=== PATIENT | male | born 1960 | race Caucasian/White ===

== ENCOUNTER 2023-11-18 17:47 | Emergency (ER) | payer BC, SELFPAY ==
[2023-11-18] VITALS (11 sets, daily range): BP systolic 122–148; BP diastolic 75–97; PULSE 80–88; RESP 16–20; TEMP 37; O2SAT 94–98; BMI 27.1
--- NOTE | 2023-11-18 18:05 | CT_ITS ---
PROCEDURE INFORMATION: Exam: CT Left Lower Extremity With Contrast; Thigh Exam date and time: 11/18/2023 7:46 PM Age: 63 years old Clinical indication: Other: Ulcerative fungating lesions lateral thigh TECHNIQUE: Imaging protocol: CT of the left lower extremity with intravenous contrast was performed. Exam focused on the thigh. Radiation optimization: All CT scans at this facility use at least one of these dose optimization techniques: automated exposure control; mA and/or kV adjustment per patient size (includes targeted exams where dose is matched to clinical indication); or iterative reconstruction. Contrast material: ISOVUE; Contrast volume: 120 ml; Contrast route: IV; COMPARISON: No relevant prior studies available. FINDINGS: Bones/joints: Normal. No acute fracture or dislocation. Soft tissues: Lateral thigh subcutaneous soft tissue enhancement with edema of the subcutaneous fat compatible with cellulitis. No foci of air to suggest necrotizing fasciitis. No rim enhancing fluid collections to suggest abscess. Lymph nodes: Multiple prominent left inguinal lymph nodes are likely reactive measuring 9 mm in short axis. IMPRESSION: Lateral thigh subcutaneous soft tissue enhancement with edema of the subcutaneous fat compatible with cellulitis. No foci of air to suggest necrotizing fasciitis. No rim enhancing fluid collections to suggest abscess.
--- NOTE | 2023-11-18 18:32 | PC.NURSE ---
PT ASSISTED TO BR
--- NOTE | 2023-11-18 18:32 | HMH.EDGENADL ---
Discharge Plan Disposition Patient Disposition: Home, Self-Care Prescriptions Prescriptions: New mupirocin 2 % ointment 1 applic topical BID Qty: 22 0RF metformin 500 mg tablet 500 mg PO BID Qty: 60 0RF Referrals Follow up/Referrals: Leonardo Linder [Referring] - See instructions Lencho Nguyen DO [Staff Physician] - See instructions Eugene Lebron [Primary Care Provider] - See instructions Activity Restrictions/Add. Instructions Additional Instructions/Restrictions: You were evaluated in the emergency department today. Please keep your wound clean and dry. Do not submerge under any water. Use the ointment prescribed to you. Take Tylenol and ibuprofen at home as needed for pain. You were given IV antibiotics here today. Please follow-up closely with your primary care provider as well as with orthopedics for further evaluation and management of this wound. I provided you with information for Dr. Nguyen for orthopedics as well as Dr. Linder if you need a referral to a primary care provider. Return to the emergency department for any new or worsening symptoms. Your blood sugar is very high. It is important you take medication for your diabetes. We are providing you with prescription. Clinical Impressions Clinical Impression: Leg wound, left, Cellulitis of left thigh, Hyperglycemia Instructions Patient Instructions: DI for Diabetes Type 2, DI for Skin Abscess Discharge ED Provider: [facility] Adult HPI General Chief complaint: Skin/Abscess/Foreign Body Stated complaint: Left leg pain and swollen sore Time Seen by Provider: 11/18/23 18:00 Mode of Arrival: Ambulatory Source of Information: Patient Limitations: No Limitations Description of Symptoms (Recalled from ER Triage Doc. by RN): patient ambulatory to ED with c/o left thigh pain with open wound on lateral thigh. Present x5 days. Denies fevers, treating pain with ibuprofen History of Present Illness HPI narrative: This patient is a 63-year-old male who denies significant past medical history presenting to the emergency department for evaluation with concern for a very large open wound to the lateral aspect of his left thigh with purulence and surrounding erythema/warmth. Started out as a boil but keeps getting worse. This has been there for approximately 5 days. Has been taking ibuprofen at home for the pain. Denies any fevers, chills, chest pain, shortness of breath, or other concerns. He does note that he is at multiple abscesses in the past, but typically they are drained or go away on their own. No other concerns noted. Related Data Previous Rx's Medication Instructions Recorded metformin 500 mg tablet 500 mg PO BID #60 tabs 11/18/23 mupirocin 2 % topical ointment 1 applic topical BID #22 grams 11/18/23 Allergies Allergy/AdvReac Type Severity Reaction Status Date / Time No Known Allergies Allergy Verified 11/18/23 18:41 [facility] Disclaimer: The information contained in this section may have been updated after the patient was seen, as this information can be updated by other users. Social History Smoking Status: Never smoker alcohol intake: never current occupational status: employed Travel in the last 8 weeks: None ROS Obtained: Yes All systems reviewed & no additional complaints except as documented Physical Exam General General appearance: alert and in no apparent distress Head Head exam: atraumatic and normocephalic Eye Eye exam: Present normal appearance, PERRL and EOMI ENT ENT exam: Present normal exam, normal oropharynx, mucous membranes moist and normal external ear exam Neck Neck exam: Present normal inspection, full ROM and trachea midline; Absent tenderness Chest Chest inspection: Present normal inspection and symmetric chest wall rise; Absent tenderness Respiratory Respiratory exam: Present normal lung sounds bilaterally; Absent respiratory distress, wheezes, stridor or accessory muscle use Cardiovascular Cardiovascular exam: Present regular rate and normal rhythm Abdominal Exam Abdominal exam: Present soft; Absent distention, tenderness or guarding Extremities Exam Extremities exam: Present full ROM, tenderness (lateral L thigh), normal capillary refill and other Expanded Lower Extremity Exam Left: Leg image: 1. large ulcerative fungating lesion with purulent drainage; surrounding erythema/warmth/tenderness. Comment: all compartments soft, neurovascularly intact distally Back Exam Back exam: Present normal inspection and full ROM; Absent tenderness Neurological Exam Neurological exam: Present alert, oriented X3, CN II-XII intact and normal gait; Absent motor sensory deficit Psychiatric Psychiatric exam: Present normal affect and normal mood Skin Skin exam: Present warm and dry Medical Decision Making Medical Records Medical records reviewed: Yes I reviewed the patient's medical records. Mikey Inquiry Pt receiving controlled substance: No Vital Signs: 11/18/23 17:50 11/18/23 18:00 11/18/23 18:30 Temperature 98.6 F Temperature Source Oral Pulse Rate 88 86 Pulse Rate [Right] 88 Respiratory Rate 16 Blood Pressure 128/95 H 125/96 H Blood Pressure [Right Arm] 147/92 H Blood Pressure Mean Blood Pressure Mean [Right Arm] 110 Blood Pressure Source Blood Pressure Source [Right Arm] Automatic Cuff Blood Pressure Position Blood Pressure Position [Right Arm] Sitting 02 Sat by Pulse Oximetry 98 97 96 Oxygen Delivery Method Room Air Room Air Room Air 11/18/23 18:49 11/18/23 19:00 11/18/23 22:11 Temperature 98.6 F Temperature Source Oral Pulse Rate 80 81 84 Pulse Rate [Right] Respiratory Rate 18 20 18 Blood Pressure 122/80 122/75 148/97 H Blood Pressure [Right Arm] Blood Pressure Mean 95 86 Blood Pressure Mean [Right Arm] Blood Pressure Source Automatic Cuff Blood Pressure Source [Right Arm] Blood Pressure Position Sitting Blood Pressure Position [Right Arm] 02 Sat by Pulse Oximetry 95 94 L Oxygen Delivery Method Room Air Room Air Room Air 11/18/23 20:01 11/18/23 20:30 11/18/23 21:00 Temperature Temperature Source Pulse Rate 82 82 86 Pulse Rate [Right] Respiratory Rate 20 18 20 Blood Pressure 146/85 H 147/88 H 144/84 H Blood Pressure [Right Arm] Blood Pressure Mean 105 101 104 Blood Pressure Mean [Right Arm] Blood Pressure Source Blood Pressure Source [Right Arm] Blood Pressure Position Blood Pressure Position [Right Arm] 02 Sat by Pulse Oximetry 96 95 96 Oxygen Delivery Method Room Air Room Air Room Air 11/18/23 21:30 11/18/23 22:00 Temperature Temperature Source Pulse Rate 80 88 Pulse Rate [Right] Respiratory Rate 18 20 Blood Pressure 132/83 148/97 H Blood Pressure [Right Arm] Blood Pressure Mean 103 114 Blood Pressure Mean [Right Arm] Blood Pressure Source Blood Pressure Source [Right Arm] Blood Pressure Position Blood Pressure Position [Right Arm] 02 Sat by Pulse Oximetry 98 96 Oxygen Delivery Method Room Air Room Air Lab Data Lab results reviewed: Yes I reviewed the patient's lab results. Lab Results 11/18/23 18:42: WBC 9.6, RBC 4.70, Hgb 14.6, Hct 43.4, MCV 92.3, MCH 31.1, MCHC 33.7, RDW 13.1, Plt Count 201, MPV 8.5, Neut % (Auto) 73.2, Lymph % (Auto) 19.4, Terry % (Auto) 5.5, Eos % (Auto) 1.4, Baso % (Auto) 0.5, Neut # (Auto) 7.0, Lymph # (Auto) 1.9, Terry # (Auto) 0.5, Eos # (Auto) 0.1, Baso # (Auto) 0.1, ESR 84 H, PT 9.8 L, INR 0.90, Sodium 131 L, Potassium 4.6, Chloride 98, Carbon Dioxide 28, Anion Gap 9.6, BUN 20, Creatinine 0.90, Estimated Creat Clear 97, Estimated GFR 85, Est GFR ( Amer) 103, Glucose 558 H*, Lactate 1.9, Calcium 9.2, Total Bilirubin 0.5, AST 25, ALT 31, Alkaline Phosphatase 158 H, C-Reactive Protein 142.5 H, Total Protein 6.7, Albumin 3.6, Globulin 3.1, Albumin/Globulin Ratio 1.2 11/18/23 18:42 11/18/23 18:42 Orders (Tests/Meds): ED MEDICATIONS Discontinued Medications Generic Name Dose Route Start Last Admin Trade Name Freq PRN Reason Stop Dose Admin Acetaminophen 1,000 mg 11/18/23 21:35 11/18/23 21:47 Acetaminophen 500mg Tab PO 11/18/23 21:36 1,000 mg ONCE ONE Administration Bacitracin 1 gm 11/18/23 21:20 11/18/23 21:26 Bacitracin Zinc Oint 30gm Tube TP 11/18/23 21:21 1 gm ONCE ONE Administration Dalbavancin 1,500 mg/ Dextrose 250 mls @ 500 mls/hr 11/18/23 21:04 11/18/23 21:33 IV 11/18/23 21:05 500 mls/hr ONCE ONE Administration Ibuprofen 800 mg 11/18/23 21:35 11/18/23 21:46 Ibuprofen 400 Mg Tablet PO 11/18/23 21:36 800 mg ONCE ONE Administration Iopamidol 120 ml 11/18/23 19:41 11/18/23 19:51 Iopamidol-370 (76%);100ml Bottle IV 11/18/23 19:42 120 ml ONCE ONE Administration Ondansetron HCl 4 mg 11/18/23 21:35 11/18/23 21:47 Ondansetron 4mg Odt SL 11/18/23 21:36 4 mg ONCE ONE Administration Oxycodone HCl 5 mg 11/18/23 21:35 11/18/23 21:47 Oxycodone 5mg Immediate Release Tablet PO 11/18/23 21:36 5 mg ONCE ONE Administration Sodium Chloride 10 ml 11/18/23 19:41 11/18/23 19:51 Sodium Chloride 0.9% 10ml Syr (Rad Only) IV 11/18/23 19:42 10 ml ONCE ONE Administration Sodium Chloride 50 ml 11/18/23 19:41 11/18/23 19:50 0.9 % Sodium Chloride 50 Ml Vial IV 11/18/23 19:42 50 ml ONCE ONE Administration Trimethoprim/Sulfamethoxazole 1 each 11/18/23 21:01 11/18/23 21:34 Sulfa/Trimethoprim 1 Tablet PO 11/18/23 21:02 Not Given ONCE ONE ORDERS Category Date Time Status CT femur LT w con Stat Cat Scan 11/18/23 18:05 Completed C-Reactive Protein Stat Lab 11/18/23 18:42 Completed Complete Blood Count Auto Diff Stat Lab 11/18/23 18:42 Completed Comprehensive Metabolic Panel Stat Lab 11/18/23 18:42 Completed Erythrocyte Sedimentation Rate Stat Lab 11/18/23 18:42 Completed Lactic Acid Stat Lab 11/18/23 18:42 Completed Prothrombin Time INR Stat Lab 11/18/23 18:42 Completed Blood Culture Stat Micro 11/18/23 18:39 Received Wound Culture and Gram Stain Stat Micro 11/18/23 18:45 Received Medical Decision Narrative: In summary, this patient is a 63-year-old male presenting to the Emergency Department for evaluation of wound to the lateral aspect of the left thigh with purulent drainage, redness, and pain. Differential diagnoses considered include but are not limited to cellulitis, abscess, boil, malignancy. Ruling out the most morbid conditions drove assessment. On exam, the patient is nontoxic-appearing with normal vital signs on cardiac telemetry. He has a very large ulcerative lesion with surrounding erythema and induration to the lateral aspect of the left thigh with purulent drainage. Workup included CBC, CMP, blood cultures, ESR, CRP, lactic acid, and CT of the left femur with IV contrast. I independently interpreted CT scan prior to the radiologist read and noted no obvious drainable abscess and no gas, but he does have cellulitis under this wound. Please see their read for final interpretation. Labs were obtained that demonstrated elevated inflammatory markers as well as hyperglycemia, but no other acute concerns. Patient states that he knows that he is a diabetic but he does not take his pills at home. I counseled him that he should take these pills. He is not sure if he has any or what they may be, so I prescribed with metformin 500 mg to take twice a day. No concern for DKA or HHS on exam. Patient was given IV dalvance here in the emergency department. He was also given oral Tylenol, ibuprofen, and oxycodone for pain Patient's wound was dressed with antibiotic ointment and a wet-to-dry dressing. At this time, I feel that he is appropriate for discharge with follow-up with orthopedics for management of his wound as well as follow-up with primary care provider for management of his hyperglycemia. He was given instructions for close a patient follow-up, strict return precautions, he was discharged in stable condition after all questions were answered. Critical Care Critical Care Time Critical Care Time: No
[2023-11-18 19:05] LABS: Basophils # 0.1 K/mm3 (0-0.2); Basophils % 0.5 % (0.1-2.0); Eosinophils # 0.1 K/mm3 (0.0-0.4); Eosinophils % 1.4 % (0.1-12.0); Hematocrit 43.4 % (42.0-52.0); Hemoglobin 14.6 g/dL (14.1-18.0); Lymphocytes # 1.9 K/mm3 (0.7-4.5); Lymphocytes % 19.4 % (10-50); Mean Corpuscular HGB Conc 33.7 g/dL (31.8-35.4); Mean Corpuscular Hemoglobin 31.1 pg (27.0-31.2); Mean Corpuscular Volume 92.3 fl (80-94); Mean Platelet Volume 8.5 fl (7.4-10.4); Monocytes # 0.5 K/mm3 (0.1-1.0); Monocytes % 5.5 % (1.7-9.3); Neutrophils % 73.2 % (37.0-80.0); Platelet Count 201 K/mm3 (142-424); Red Cell Distribution Width 13.1 % (11.5-17.5); White Blood Count 9.6 K/mm3 (4.8-10.8)
[2023-11-18 19:06] LABS: Chloride 98 mmol/L (98-107); Sodium 131 mmol/L (136-145)
[2023-11-18 19:07] LABS: Potassium 4.6 mmoL/L (3.5-5.1)
[2023-11-18 19:09] LABS: Alanine Aminotransferase 31 U/L (12-78); Albumin Level 3.6 g/dl (3.5-5.0); Albumin/Globulin Ratio 1.2 (1.1-1.8); Alkaline Phosphatase 158 U/L (38-126); Aspartate Amino Transferase 25 U/L (17-59); Bilirubin,Total 0.5 mg/dl (0.2-1.3); Blood Urea Nitrogen 20 mg/dl (9-20); Creatinine Clearance Estimated 97 mL/min (50-200); Estimated Glomerular Filt Rate 85 ml/min (>60); GFR (African American) 103 ML/MIN (>60); Globulin 3.1 g/dL (1.3-3.2); Total Protein,Serum 6.7 g/dl (6.3-8.2)
[2023-11-18 19:10] LABS: Anion Gap 9.6 mEq/L (5-15); Calcium 9.2 mg/dl (8.4-10.2); Carbon Dioxide 28 mmol/L (22.0-30.0)
[2023-11-18 19:11] LABS: Lactic Acid 1.9 mmol/L (0.7-2.1)
[2023-11-18 19:12] LABS: Glucose 558 mg/dl (74-100)
[2023-11-18 19:15] LABS: C-Reactive Protein 142.5 mg/L (0-4)
[2023-11-18 19:26] LABS: Prothrombin Time 9.8 seconds (10.1-12.5)
--- NOTE | 2023-11-18 19:45 | PC.NURSE ---
pt to CT
[2023-11-18 19:47] LABS: Erythrocyte Sedimentation Rate 84 mm/hr (0-20)
[2023-11-18] MEDS: 0.9 % SODIUM CHLORIDE 50 ML VIAL IV (19:50)
[2023-11-18] MEDS: SODIUM CHLORIDE 0.9% 10ML SYR (RAD ONLY) 10 ML IV (19:51)
[2023-11-18] MEDS: IOPAMIDOL-370 (76%);100ML BOTTLE 120 ML IV (19:51)
--- NOTE | 2023-11-18 21:23 | PC.NURSE ---
in room speaking to patient
[2023-11-18] MEDS: BACITRACIN ZINC OINT 30GM TUBE TP (21:26)
[2023-11-18] MEDS: DALBAVANCIN HCL 1,500 MG in DEXTROSE 5 % IN WATER 250 ML 500 MG IV (21:33)
[2023-11-18] MEDS: IBUPROFEN 400 MG TABLET 800 MG PO (21:46)
[2023-11-18] MEDS: OXYCODONE 5MG IMMEDIATE RELEASE TABLET 5 MG PO (21:47)
[2023-11-18] MEDS: ONDANSETRON 4MG ODT 4 MG SL (21:47)
[2023-11-18] MEDS: ACETAMINOPHEN 500MG TAB 1000 MG PO (21:47)
--- NOTE | 2023-11-26 06:59 | PC.NURSE ---
discussed aerobic blood cx with DO Ethan. Received dalvance in house. no new actions.
== END 2023-11-18 22:13 | disposition home or self-care (01) ==
PROVIDERS: Emergency Provider Emergency Medicine; PCP Internal Medicine
DX: L03.116 Cellulitis of left lower limb (principal); S71.102S Unspecified open wound, left thigh, sequela; E11.65 Type 2 diabetes mellitus with hyperglycemia; X58.XXXA Exposure to other specified factors, initial encounter
CPT/HCPCS: 73701; 80053; 83605; 85025; 85610; 85651; 86140; 87040; 87070; 87205; 96374; 99285; J0875; Q9967

== ENCOUNTER 2023-11-26 13:10 | Outpatient (CLI) | payer BC, SELFPAY ==
--- NOTE | 2023-11-26 13:11 | ECG_ITS ---
APPROVED REPORT Exam: Resting ECG HR:69 bpm ECG Measurements Heart Rate 69 AXES MS 156 P 38 QRSd 108 QRS 30 QT 384 T 70 QTc 403 Conclusion SINUS RHYTHM NORMAL ECG UNCONFIRMED REPORT Electronically signed by : Jesse Reed MD 11/26/2023 20:57:11
[2023-11-26 14:16] LABS: Anion Gap 13.6 mEq/L (5-15); Blood Urea Nitrogen 18 mg/dl (9-20); Calcium 9.8 mg/dl (8.4-10.2); Carbon Dioxide 27 mmol/L (22.0-30.0); Chloride 102 mmol/L (98-107); Estimated Glomerular Filt Rate 85 ml/min (>60); GFR (African American) 103 ML/MIN (>60); Glucose 229 mg/dl (74-100); Potassium 4.6 mmoL/L (3.5-5.1); Sodium 138 mmol/L (136-145)
[2023-11-26 14:18] LABS: Basophils % 0.6 % (0.1-2.0); Eosinophils # 0.1 K/mm3 (0.0-0.4); Eosinophils % 1.5 % (0.1-12.0); Hematocrit 45.3 % (42.0-52.0); Hemoglobin 15.5 g/dL (14.1-18.0); Lymphocytes % 30.7 % (10-50); Mean Corpuscular HGB Conc 34.3 g/dL (31.8-35.4); Mean Corpuscular Hemoglobin 30.5 pg (27.0-31.2); Mean Corpuscular Volume 88.7 fl (80-94); Monocytes # 0.3 K/mm3 (0.1-1.0); Monocytes % 4.9 % (1.7-9.3); Neutrophils # 4.2 K/mm3 (1.8-7.8); Neutrophils % 62.3 % (37.0-80.0); Platelet Count 243 K/mm3 (142-424); Red Cell Distribution Width 13.1 % (11.5-17.5); White Blood Count 6.7 K/mm3 (4.8-10.8)
== END 2023-11-26 23:59 ==
LOC: RT 13:11
PROVIDERS: PCP Internal Medicine; Visit Provider Surgery
DX: Z01.818 Encounter for other preprocedural examination (principal); L03.116 Cellulitis of left lower limb
CPT/HCPCS: 36415; 80048; 85025; 93005

== ENCOUNTER 2023-11-28 08:47 | Day surgery (SDC) | payer BC, SELFPAY ==
[2023-11-26 13:22] VITALS: BMI 25.2
[2023-11-28] MEDS: LACTATED RINGERS 1000ML 1,000 ML 25 ML IV (09:11)
[2023-11-28 09:12] VITALS: BP 126/78; PULSE 71; RESP 18; TEMP 36.2; O2SAT 97
[2023-11-28 09:21] LABS: POC Glucose,Bedside 163 (70-110)
--- NOTE | 2023-11-28 11:13 | EXP.ANES.CKL ---
[facility] Disclaimer: The information contained in this section may have been updated after the patient was seen, as this information can be updated by other users. Medical History Diabetes mellitus, type 2 Surgical History History of colonoscopy History of surgery on lower extremity Family History Other Colon cancer Family history of cancer Social History Smoking Status: Never smoker alcohol intake: never substance use type: denies use current occupational status: employed Travel in the last 8 weeks: None [facility] Anesthesia Checklist Patient Identification Patient Identification: Arm Band and Verbal (Name & ) Structural Data Admitted From: Home Planned Operative Procedure/s: Excision/Debridement Lt. thigh abscess Consent for Planned Operative Procedure(s) Verified: Yes Verified Documents: Surgical Consent and History and Physical NPO Status Verified Time NPO: 23:00 Chart Verification Results Verified: CBC, BMP, PT, PTT, INR and ECG Additional verifications Fingerstick Blood Glucose: 163 Patient : No Anesthesia Reactions: No Hx Blood Transfusions: No Blood Transfusion Reaction: No Cardiovascular Assessment Heart Sounds: S1 & S2 Pulse Rhythm: Irregular Peripheral Edema: No Airway Assessment Mallampati Score:: Class II C-Spine Mobility Assessed: Yes (FROM) TMJ Mobility Assessed: Yes Dentition: Dentures-good fit (Nothing loose per pt.) Neurological Assessment Level of Consciousness: Awake, Alert, Appropriate and Follows Commands Hx Seizures: No Numbness or tingling in extremities: No Anesthesia Plan Anesthesia Risk discussed: Yes Anesthesia Plan: Verified ASA Class: III Anesthesia Type: MAC
[2023-11-28] MEDS: LIDOCAINE 1% 20ML MDV 20 ML (11:33)
[2023-11-28] MEDS: CEFAZOLIN SODIUM 2 GM in 0.9 % SODIUM CHLORIDE 100 ML IV (11:35)
--- NOTE | 2023-11-28 11:41 | EXP.OP.NOTE ---
Date of procedure: 11/28/23 Pre-op Diagnosis:: Left lower extremity/lateral thigh wound/abscess (4 cm) Post-op Diagnosis:: Same Procedure performed:: Incision and drainage/debridement of left lower extremity/lateral thigh complex wound/multifocal abscess Surgeon:: Angel Macias MD Anesthesia: MAC and local Estimated blood loss (mL): 15 Operative findings:: Complex multifocal abscess with patchy necrosis Operative note:: After informed consent was obtained the patient was taken to the operating room and placed in the supine position. Monitored anesthesia care ensued and his left lower extremity/lateral thigh was prepped and draped in a sterile fashion. After infiltration with local anesthetic an incision was made around the margin of the lesion with electrocautery. Dissection continued into the deep subcutaneous tissue to the margin of the fascia. The complex multifocal abscess with patchy necrosis was excised in toto and passed off for pathologic evaluation. Electrocautery was utilized to achieve hemostasis. The wound was packed with dry gauze. Dressings were applied and the patient was transferred to recovery in stable condition. Condition: stable Disposition: PACU Specimens:: Left lower extremity/lateral thigh complex wound/multifocal abscess Complications:: No immediate
[2023-11-28 11:45] VITALS: BP 97/63; PULSE 73; RESP 16; TEMP 36.2; O2SAT 92
--- NOTE | 2023-11-28 11:51 | EXP.ANES.I ---
[facility] Anesthesia Record Part I Anesthesia Record I Intake, IV Amount: 900 Hydration: Adequate Estimated blood loss (mL): 10 Urine output (mL): 0 Blood Products used (#): none Blood Pressure: 97/63 SaO2: 93 Pulse Rate: 73 Airway Patency: Patent Respiratory Rate: 16 Temperature: 97.1 F Patient is:: Awake and Stable Stable to PACU at:: 11:50
[2023-11-28 11:52] VITALS: BP 97/63; PULSE 73; RESP 16; TEMP 36.2; O2SAT 93
[2023-11-28 12:00] VITALS: BP 105/73; PULSE 70; RESP 16; O2SAT 95
[2023-11-28 12:15] VITALS: BP 115/70; PULSE 69; RESP 18; O2SAT 96
== END 2023-11-28 12:15 | disposition home or self-care (01) ==
PROVIDERS: PCP Internal Medicine; Visit Provider Surgery
PROC: (CPT 10060; principal; 2023-11-28 11:00)
DX: L02.416 Cutaneous abscess of left lower limb (principal); I96 Gangrene, not elsewhere classified; E11.9 Type 2 diabetes mellitus without complications
CPT/HCPCS: 10060; 82962; 96374; J2405

== ENCOUNTER 2025-02-08 15:51 | Outpatient (RCR) | payer BC, SELFPAY | END 2025-02-08 23:59 | disposition home or self-care (01) | LOC: PT 15:51 | PROVIDERS: PCP Internal Medicine; Visit Provider Orthopaedic Surgery Adult Reconstructive Orthopaedic Surgery | DX: M75.02 Adhesive capsulitis of left shoulder (principal) | CPT/HCPCS: 97163 ==

== ENCOUNTER 2025-04-11 16:00 | Outpatient (RCR) | payer BC, SELFPAY | END 2025-04-11 23:59 | disposition home or self-care (01) | LOC: PT.CARL 16:00 | PROVIDERS: PCP Internal Medicine; Visit Provider Orthopaedic Surgery Adult Reconstructive Orthopaedic Surgery | DX: M75.02 Adhesive capsulitis of left shoulder (principal) | CPT/HCPCS: 97014; 97032; 97035; 97110; 97140; 97164; 97530; G0283 ==